=== PATIENT | female | born 1980 | race African-American/Black ===

== ENCOUNTER 2016-03-31 06:24 | Emergency (ER) | payer OTHER ==
[~2016-03-31] VITALS: Ht 175.3 cm; Wt 115.7 kg
--- NOTE | ~2016-03-31 | EKG ---
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1980 Requested By: Remigio Marino Order Number: [id number] MD: Tien Michele Measurements Intervals [place] Rate: 79 P: 0 KS: 218 QRS: 3 QRSD: 97 T: -17 QT: 400 QTc: 459 Interpretive Statements Sinus rhythm Prolonged [place] interval Probable left ventricular hypertrophy Borderline T abnormalities, diffuse leads No previous ECG available for comparison Electronically Signed On 04-01-2016 8:47:13 [employer] by Tien Michele [email or web address] <ELECTRONICALLY SIGNED> By: Tien Michele MD, [facility] 04/01/16 0847 0728 7 Tien Michele MD, FACC /EPI
[~2016-03-31 06:24] MED LIST: NAPROSYN500 MG; PROVERA10 MG PO; TYLENOL EXTRA500 MG; ULTRAM 50MG TAB50 MG PO; VICODIN 5-3001 EACH PO; XANAX 0.5 MG0.5 MG PO; XANAX1 MG
[2016-03-31 07:19] LABS: BASOPHILS 1.5 % (0.0-2.0); CREATININE 0.9 mg/dL (0.6-1.3); EOSINOPHILS 1.6 % (0.0-3.0); HEMOGLOBIN 13.6 gm/dL (12.0-15.0); LYMPHOCYTES 29.9 % (24.0-44.0); MCH 29.1 pg (26.0-34.0); MCHC 33.2 % (28.0-37.0); MCV 87.6 fL (80.0-100.0); MONOCYTES 5.6 % (1.0-8.0); PLATELET COUNT 369 thou/uL (150-400); POLYS 61.4 % (36.0-66.0); POTASSIUM 3.6 mmol/L (3.5-5.1); RBC 4.68 mil/uL (4.20-5.00); RDW 13.6 % (10.5-14.5); WBC 11.4 thou/uL (4.0-11.0)
[2016-03-31 07:20] LABS: MANUAL DIFF NO
[2016-03-31] MEDS ORDERED: NORVASC10 MG PO (08:43)
[2016-03-31] MEDS ORDERED: NORCO 5-325 TA1 EACH PO (08:43)
[2016-03-31 08:58] VITALS: BP 151/88
== END 2016-03-31 09:09 | disposition home or self-care (01) ==
LOC: ER 06:24
PROVIDERS: Emergency Medicine
DX: I10 Essential (primary) hypertension (principal); R51 Headache; J45.909 Unspecified asthma, uncomplicated; Z88.5 Allergy status to narcotic agent; Z88.8 Allergy status to other drugs, medicaments and biological substances

== ENCOUNTER 2019-06-08 00:13 | Emergency (ER) | payer OTHER ==
[~2019-06-08] VITALS: Ht 177.8 cm; Wt 119.8 kg
[~2019-06-08 00:13] MED LIST changes: +COZAAR 25 MG TA25 M1 PO; +NORCO 5-325 TA1 EACH PO; +NORVASC10 MG PO
[2019-06-08] MEDS ORDERED: SPIRONOLACTONE25 MG PO (00:36)
[2019-06-08 00:59] LABS: URINE BILIRUBIN NEGATIVE (Negative); URINE BLOOD NEGATIVE (Negative); URINE CLARITY CLEAR; URINE COLOR YELLOW; URINE GLUCOSE-RANDOM* NEGATIVE (Negative); URINE KETONES NEGATIVE (Negative); URINE LEUKOCYTES-REFLEX NEGATIVE (Negative); URINE NITRITE-REFLEX NEGATIVE (Negative); URINE PROTEIN (DIPSTICK) NEGATIVE (Negative); URINE SPECIFIC GRAVITY <= 1.005 (1.005-1.035); URINE UROBILINOGEN 0.2 E.U./dl (0.2-1.0)
[2019-06-08 01:42] VITALS: BP 153/92
[2019-06-08 01:54] LABS: ABSOLUTE NEUTROPHILS 4.2 thou/uL (1.4-8.2); BASOPHILS 0.9 % (0.0-2.0); HEMATOCRIT 40.9 % (37.0-47.0); HEMOGLOBIN 13.5 gm/dL (12.0-15.0); MCH 29.7 pg (26.0-34.0); MCV 89.9 fL (80.0-100.0); PLATELET COUNT 348 thou/uL (150-400); POLYS 83.1 % (36.0-66.0); RBC 4.55 mil/uL (4.20-5.00); RDW 13.8 % (10.5-14.5); WBC 5.1 thou/uL (4.0-11.0)
[2019-06-08 02:08] LABS: CALCIUM 8.4 mg/dL (8.5-10.1); CREATININE 0.8 mg/dL (0.6-1.0); POTASSIUM 3.1 mmol/L (3.5-5.1)
[2019-06-08 02:14] LABS: ALBUMIN 3.8 g/dL (3.4-5.0); TOTAL BILIRUBIN 0.5 mg/dL (<0.1-1.0); TOTAL PROTEIN 8.1 g/dL (6.4-8.2)
[2019-06-08] MEDS ORDERED: IMODIUM A-D2 MG PO (02:30)
[2019-06-08] MEDS ORDERED: ZOFRAN ODT4 MG PO (02:30)
[2019-06-08] MEDS ORDERED: BENTYL 20 MG TA20 M1 PO (02:30)
== END 2019-06-08 02:42 | disposition home or self-care (01) ==
LOC: ER 00:13
PROVIDERS: Emergency Medicine
DX: K52.9 Noninfective gastroenteritis and colitis, unspecified (principal); J45.909 Unspecified asthma, uncomplicated; I10 Essential (primary) hypertension; Z79.899 Other long term (current) drug therapy

== ENCOUNTER 2019-10-04 19:43 | Emergency (ER) | payer OTHER ==
[~2019-10-04] VITALS: Ht 177.8 cm; Wt 122.5 kg
[~2019-10-04 19:43] MED LIST changes: +BENTYL 20 MG TA20 M1 PO; +IMODIUM A-D2 MG PO; +SPIRONOLACTONE25 MG PO; +ZOFRAN ODT4 MG PO
[2019-10-04 19:48] VITALS: BP 163/84
[2019-10-04 20:50] LABS: ABSOLUTE NEUTROPHILS 6.9 thou/uL (1.4-8.2); BASOPHILS 0.9 % (0.0-2.0); EOSINOPHILS 2.5 % (0.0-3.0); HEMATOCRIT 37.2 % (37.0-47.0); HEMOGLOBIN 13.1 gm/dL (12.0-15.0); LYMPHOCYTES 15.3 % (24.0-44.0); MCH 31.5 pg (26.0-34.0); MCHC 35.1 g/dL (28.0-37.0); MCV 89.6 fL (80.0-100.0); MONOCYTES 3.7 % (1.0-8.0); PLATELET COUNT 363 thou/uL (150-400); POLYS 77.6 % (36.0-66.0); RBC 4.15 mil/uL (4.20-5.00); RDW 13.9 % (10.5-14.5); WBC 8.9 thou/uL (4.0-11.0)
[2019-10-04 20:53] LABS: ANION GAP 8 mmol/L (7-16); BUN 7 mg/dL (7-18); CALCIUM 9.4 mg/dL (8.5-10.1); CHLORIDE 99 mmol/L (98-107); CO2 28 mmol/L (21-32); CREATININE 0.9 mg/dL (0.6-1.0); GLUCOSE 109 mg/dL (74-106); POTASSIUM 3.8 mmol/L (3.5-5.1); SODIUM 135 mmol/L (136-145)
[2019-10-04 21:03] LABS: SGOT 25 U/L (15-37); SGPT 29 U/L (30-65); TOTAL BILIRUBIN 0.3 mg/dL (0.2-1.0); TOTAL PROTEIN 8.2 g/dL (6.4-8.2); TROPONIN-I <0.06 ng/mL (<0.06)
--- NOTE | 2019-10-05 08:12 | EKG ---
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1980 Requested By: Amado Hess Order Number: [id number] MD: Hiram Cerrato Measurements Intervals [place] Rate: 66 P: 19 TX: 198 QRS: 2 QRSD: 92 T: 3 QT: 411 QTc: 431 Interpretive Statements Sinus rhythm LVH by voltage Borderline T abnormalities, anterior leads Compared to ECG 07/15/2016 08:19:09 Left ventricular hypertrophy now present Sinus tachycardia no longer present T-wave abnormality still present Electronically Signed On 10-05-2019 8:12:16 CDT by Hiram Cerrato [email or web address] <ELECTRONICALLY SIGNED> By: Hiram Cerrato MD 10/05/19811 35 35 Hiram Cerrato MD /EPI
== END 2019-10-04 21:42 | disposition home or self-care (01) ==
LOC: ER 19:43
PROVIDERS: Emergency Medicine
DX: R07.89 Other chest pain (principal); J45.909 Unspecified asthma, uncomplicated; I10 Essential (primary) hypertension; Z90.710 Acquired absence of both cervix and uterus; Z88.5 Allergy status to narcotic agent; Z88.8 Allergy status to other drugs, medicaments and biological substances; Z79.899 Other long term (current) drug therapy